=== PATIENT | female | born 1990 | race Caucasian/White ===

== ENCOUNTER 2017-10-08 18:36 | Emergency (ER) | payer BC, OTHER ==
[~2017-10-08] VITALS: Ht 172.7 cm; Wt 83.9 kg
[2017-10-08 19:23] LABS: Basophils # (auto) 0.2 uL; Basophils % (auto) 1.5 % (0.0-2.0); Eosinophils # (auto) 0.2 uL; Eosinophils % (auto) 1.3 % (0.0-7.0); Hematocrit 37.9 % (36.0-46.0); Hemoglobin 12.8 g/dL (12.2-16.2); Lymphocytes # (auto) 3.5 uL; Lymphocytes % (auto) 30.4 % (10.0-50.0); Mean Corpuscular Hemoglobin 30.5 pg (28.0-32.0); Mean Corpuscular Hgb Conc. 33.8 g/dL (32.0-36.0); Mean Corpuscular Volume 90.3 fL (80.0-100.0); Monocytes # (auto) 0.6 uL; Monocytes % (auto) 5.1 % (0.0-12.0); Neutrophils # (auto) 7.1 uL; Neutrophils % (auto) 61.7 % (37.0-80.0); Platelet Count (auto) 264 10^3/uL (140-450); Red Cell Distribution Width 13.9 % (11.8-14.3); White Blood Cell 11.6 10^3/uL (4.4-10.8)
[2017-10-08 19:42] LABS: Alanine Aminotransferase 89 U/L (13-56); Albumin 3.5 g/dL (3.4-5.0); Alkaline Phosphatase 198 U/L (45-117); Anion Gap 14 (5-15); Aspartate Aminotransferase 138 U/L (15-37); BUN/Creatinine Ratio 16.7; Bilirubin, Total 0.3 mg/dL (0.2-1.0); Blood Urea Nitrogen 15 mg/dL (7-18); Carbon Dioxide 20 mmol/L (21-32); Chloride 106 mmol/L (98-107); GFR African American 97 mL/min; GFR Non-African American 80 mL/min; Glucose 97 mg/dL (74-106); Magnesium 2.2 mg/dL (1.6-2.6); Potassium 3.2 mmol/L (3.5-5.1); Sodium 140 mmol/L (136-145); Total Protein 7.6 g/dL (6.4-8.2)
[2017-10-08] MEDS ORDERED: HYDROcodone-ACET 10/325MG TAB PO ONE (23:00)
[2017-10-08 23:04] LABS: Urine Amorphous Crystal FEW /hpf (None Seen); Urine Bacteria FEW /hpf (None Seen); Urine Blood Negative /uL (Negative); Urine Mucus FEW (None Seen); Urine Specific Gravity 1.016 (1.001-1.035); Urine WBC 15 /hpf (0 - 5)
[2017-10-08 23:58] VITALS: BP 121/74
[2017-10-09] MEDS ORDERED: MAGNESIUM CITRATE SOLUTION 300 ML BTL PO ONE (00:30)
[2017-10-09] MEDS ORDERED: POTASSIUM CHL 20 Meq TABLET PO ONE (01:00)
== END 2017-10-09 01:09 | disposition home or self-care (01) ==
LOC: EDBD 18:36 → ER 18:40
DX: R07.89 Other chest pain (principal); K59.00 Constipation, unspecified; J45.909 Unspecified asthma, uncomplicated; Z88.2 Allergy status to sulfonamides; Z88.8 Allergy status to other drugs, medicaments and biological substances
CPT/HCPCS: 36415; 71046; 71250; 74176; 80053; 81001; 83690; 83735; 84484; 85025; 85379; 93005